=== PATIENT | female | born 1940 ===

== ENCOUNTER 2019-04-21 13:00 | Outpatient (CLI) | payer MEDICARE, SELFPAY ==
--- NOTE | 2019-04-21 13:10 | ECG_ITS ---
Measurements Intervals [place] Rate: 71 P: 94 [place]: 155 QRS: 3 QRSD: 88 T: 77 QT: 405 QTc: 442 Interpretive Statements SINUS RHYTHM ATRIAL PREMATURE COMPLEX AND FREQUENT VENTRICULAR PREMATURE COMPLEXES DELAYED PRECORDIAL R/S TRANSITION BASELINE ARTIFACT- I, II, AVR ABNORMAL ECG Electronically Signed On 04-21-2019 14:37:37 CDT by Fab Vale D.O.
== END 2019-04-21 13:01 | disposition home or self-care (01) ==
LOC: ANHLAB 13:11 → ANHCARD 14:10
PROVIDERS: PCP Family Medicine; Visit Provider Family Medicine
DX: I49.9 Cardiac arrhythmia, unspecified (principal); R94.31 Abnormal electrocardiogram [ECG] [EKG]
CPT/HCPCS: 93005

== ENCOUNTER 2019-09-10 14:39 | Outpatient (CLI) | payer MEDICARE, SELFPAY ==
--- NOTE | ~2019-09-10 | XR_ITS ---
EXAMINATION: XR tibia fibula LT 2V DATE: 09/10/2019 15:30 INDICATION: Left lower leg pain and swelling and redness. TECHNIQUE: 3 views of left tibia and fibula on 3 radiographs were obtained. COMPARISON: None. FINDINGS: Bone alignment is normal. No fracture. There is mild tricompartmental osteoarthritis of the knee. There is a small knee joint effusion. IMPRESSION: 1. Mild left knee osteoarthritis. 2. Small left knee joint effusion. Reviewed, dictated and finalized at location A.
--- NOTE | ~2019-09-10 | US_ITS ---
EXAMINATION: US art doppler w press LE BI DATE: 09/10/2019 15:22 INDICATION: Peripheral arterial disease. TECHNIQUE: Segmental pressures and plethysmographic and Doppler waveforms of the brachial and lower e xtremity arteries were obtained. COMPARISON: None. FINDINGS: Right and left brachial artery pressures of 197 mm Hg and 191 mm Hg, respectively, are concordant (no rmal difference <= 30 mmHg). The right high-thigh pressure index could not be measured due to inability to cuff occlude the arteri es (normal > 1.2). The right ankle-brachial index (JESSA) could not be measured due to inability to cuf f occlude the arteries (normal >= 0.9-1.0). The right great toe-brachial index (TBI) is 0.85 (normal >= 0.65). Arterial Doppler waveforms are at least biphasic from common femoral artery to the ankle. The left high-thigh pressure index could not be measured due to inability to cuff-occlude the arterie s. The left JESSA could not be measured due to inability to cuff-occlude the arteries. The left TBI is 0.94. Arterial Doppler waveforms are biphasic from common femoral artery to the ankle. IMPRESSION: 1. Normal ABIs and nondiagnostic ABIs. No significant arterial occlusive disease. Reviewed, dictated and finalized at location A. IMPRESSION: 1. Normal ABIs and nondiagnostic ABIs. No significant arterial occlusive diseas e.
== END 2019-09-10 14:40 | disposition home or self-care (01) ==
PROVIDERS: PCP Family Medicine; Visit Provider Family Medicine
DX: I83.893 Varicose veins of bilateral lower extremities with other complications (principal); I73.9 Peripheral vascular disease, unspecified; M79.669 Pain in unspecified lower leg; M17.12 Unilateral primary osteoarthritis, left knee; M25.462 Effusion, left knee
CPT/HCPCS: 73590; 93923

== ENCOUNTER → 2023-02-11 13:18 | Outpatient (CLI) | payer MEDICARE, SELFPAY ==
--- NOTE | ~2023-02-11 | MM_ITS ---
EXAMINATION: MM screening michelle BI w she HISTORY: Screening mammogram, family history of breast cancer in her sister. TECHNIQUE: Craniocaudal and mediolateral oblique 3-D tomosynthesis images were obtained and synthetic 2-D images were generated. CAD analysis was submitted and interpreted. COMPARISON: No prior mammogram is available for comparison at this institution. BREAST PARENCHYMAL COMPOSITION: The breasts are heterogeneously dense, which may obscure small masses . FINDINGS: RIGHT BREAST: No suspicious mass, calcification, or architectural distortion are identified to sugges t malignancy. LEFT BREAST: There is possible architectural distortion in the middle third of the upper left breast which could relate to history of excisional biopsy however no prior mammograms are currently availabl e for comparison. IMPRESSION: 1. Possible left breast architectural distortion which may represent the patient's baseline however n o comparison is currently available. 2. Comparison with prior mammograms is necessary. BI-RADS Category 0: Incomplete: Needs comparison with prior mammograms. Reviewed, dictated and finalized at location A. R THERMAL INSTALLER IMPRESSION: 1. Possible left breast architectural distortion which may represent the patien t's baseline however no comparison is currently available. 2. Comparison with prior mammograms is necessary. BI-RADS Category 0: Incomplete: Needs comparison with prior mammograms.
== END ==
PROVIDERS: PCP Family Medicine; Visit Provider Family Medicine
DX: Z12.31 Encounter for screening mammogram for malignant neoplasm of breast (principal); R92.8 Other abnormal and inconclusive findings on diagnostic imaging of breast
CPT/HCPCS: 77063; 77067

== ENCOUNTER 2024-04-09 13:41 | Outpatient (CLI) | payer MEDICARE, SELFPAY | END 2024-04-09 13:42 | disposition home or self-care (01) | LOC: MICIMG 13:42 | PROVIDERS: PCP Family Medicine; Visit Provider Family Medicine | DX: Z12.31 Encounter for screening mammogram for malignant neoplasm of breast (principal) | CPT/HCPCS: 77063; 77067 ==